=== PATIENT | male | born 1970 | race Two or more races ===

== ENCOUNTER 2017-06-24 17:51 | Emergency (ER) | payer OTHER ==
[~2017-06-24] VITALS: Ht 167.6 cm; Wt 67.7 kg
[~2017-06-24 17:51] MED LIST: BACTDS PO; CLIN-73 PO; GABA600T PO; GLIM2TAB47 PO; HYDR-3498 PO; LID50L4 TOP; LOPE1LIQ33 PO; NOVO3I SC; SIMV5TAB50 PO; TAMS-14 PO
[2017-06-24 17:58] VITALS: Ht 167.6 cm; Wt 67.7 kg
[2017-06-24] MEDS ORDERED: KETOROLAC 15 MG INJ IV STA (20:36)
[2017-06-24] MEDS ORDERED: SOD CHLORIDE 0.9% 1,000 ML IV STA (20:36)
[2017-06-24] MEDS ORDERED: LORAZEPAM 0.5 MG TAB PO ONE (21:00)
[2017-06-24] MEDS ORDERED: SITA1TAB5 PO (21:03)
[2017-06-24] MEDS ORDERED: OMEP40CA6 PO (21:04)
[2017-06-24 21:06] LABS: BASOPHIL # 0.1 10^3/ul (0.0-0.1); BASOPHILS % 1.1 % (0.0-2.0); EOSINOPHILS # 0.1 10^3/ul (0.0-0.5); EOSINOPHILS % 1.8 % (0.0-7.0); HEMATOCRIT 46.7 % (42.0-52.0); HEMOGLOBIN 15.5 g/dl (14.0-18.0); LYMPHOCYTES # 2.1 10^3/ul (0.8-2.9); LYMPHOCYTES % 38.2 % (15.0-51.0); MEAN CORPUSCULAR HEMOGLOBIN 27.9 pg (29.0-33.0); MEAN CORPUSCULAR HGB CONC 33.2 g/dl (32.0-37.0); MEAN PLATELET VOLUME 9.1 fl (7.4-10.4); MONOCYTE # 0.4 10^3/ul (0.3-0.9); MONOCYTES % 7.2 % (0.0-11.0); NEUTROPHIL # 2.9 10^3/ul (1.6-7.5); NEUTROPHILS % 51.5 % (39.0-77.0); PLATELET COUNT 264 10^3/UL (140-415); RED BLOOD COUNT 5.56 10^6/ul (4.70-6.10); RED CELL DISTRIBUTION WIDTH 12.2 % (11.5-14.5); WHITE BLOOD COUNT 5.6 10^3/ul (4.8-10.8)
--- NOTE | 2017-06-24 21:09 | ERD ---
ER Documentation Chief Complaint Chief Complaint Pt CP and SOB X 4 days. HPI 47-year-old man presents with epigastric abdominal pain burning radiating up to the chest and throat 4 days. He states the pain is constant nonexertional. He states he has had similar nominal pain but denies previous chest pain. The chest pain he states his pain which radiates up from the epigastrium. He is a smoker but denies family history of early CAD or [place]. Patient denies weight loss , no fevers or chills, no vomiting or diarrhea, no blood per rectum. ROS All systems reviewed and are negative except as per history of present illness. Medications Home Meds Active Scripts Mag Hydrox/Al Hydrox/Simeth (Maalox Advanced Suspension) 355 Ml Oral.susp, 2 TSP PO TID for PAIN, #24 Prov:DEISY HENDERSON MD 06/24/17 Naproxen* (Naprosyn*) 500 Mg Tablet, 500 MG PO BID Y for PAIN AND/OR INFLAMMATION, #30 TAB Prov:DEISY HENDERSON MD 06/24/17 Glimepiride* (Amaryl*) 2 Mg Tablet, 2 MG PO AC BREAKFAST DINNER for 30 Days, TAB Prov:GINA CONTRERAS 02/26/16 Reported Medications Omeprazole* (Omeprazole*) 40 Mg Capsule.dr, 40 MG PO DAILY Y for NEEDED, #30 CAP 06/24/17 Sitagliptin Phos/Metformin HCl (Janumet 50-1,000 mg Tablet) 1 Each Tablet, 1 EACH PO QAM, TAB 06/24/17 Simvastatin* (Simvastatin*) 5 Mg Tablet, 5 MG PO QHS, #30 TAB 02/22/16 Gabapentin* (Neurontin*) 600 Mg Tablet, 600 MG PO BID 07/29/09 Discontinued Scripts Clindamycin Hcl* (Clindamycin Hcl*) 300 Mg Capsule, 300 MG PO TID for 5 Days, CAP Prov:TATYANA UGLADE PA-C 07/17/16 Loperamide Hcl* (Loperamide Hcl*) 1 Mg/5 Ml Liquid, 2 MG PO TID Y for DIARRHEA, #20 ML MAX 16 mg/day Prov:GINA CONTRERAS 02/27/16 Lidocaine Hcl (Lidocaine Hcl) 40 Mg/Ml Solution, 1 APPLIC TOP DAILY, #8 OZ Prov:GINA CONTRERAS 02/27/16 Sulfamethoxazole-Trimethoprim* (Bactrim* DS) 800-160 Mg Tab, 1 TAB PO BID for 5 Days, TAB Prov:GINA CONTRERAS 02/26/16 Tamsulosin Hcl* (Flomax*) 0.4 Mg Cap.er.24h, 0.4 MG PO HS for 30 Days, CAP Prov:GINA CONTRERAS 02/26/16 Insulin Aspart* (Novolog Insulin Pen*) 100 Unit/Ml Soln, 0 UNIT SC WITH MEALS BEDTIME for 30 Days Prov:JUAN FYvetteGINA 02/26/16 Hydrocodone Bit/Acetaminophen (Anexsia 5-325 Mg Tablet) 1 Tab Tablet, 1 TAB PO Q6H Y for PAIN LEVEL 1-3, #25 TAB Prov:GINA CONTRERAS 02/26/16 Allergies Allergies: Coded Allergies: No Known Allergies (Verified Allergy, Mild, 06/24/17) PMhx/Soc gastritis, diabetes mellitus, prior rectal abscess History of Surgery: Yes (1996,back abscess removed,11/2015 rectal abscess drained) Anesthesia Reaction: No Hx Neurological Disorder: No Hx Respiratory Disorders: No Hx Cardiac Disorders: Yes (hyperlipidimia) Hx Psychiatric Problems: No Hx Miscellaneous Medical Probl: No Hx Alcohol Use: No Hx Substance Use: No Hx Tobacco Use: Yes FmHx Family History: No diabetes Physical Exam Vitals Vital Signs Date Time Temp Pulse Resp B/P Pulse Ox O2 Delivery O2 Flow Rate FiO2 06/24/17 21:00 66 14 133/88 99 Room Air 06/24/17 20:30 98.2 67 15 167/97 99 Room Air 06/24/17 17:58 97.8 85 18 151/104 100 Physical Exam GENERAL: Well-developed, well-nourished, well-hydrated, appears anxious, afebrile HEENT: Moist mucous membranes, pink conjunctiva, no cervical spine tenderness or step-off deformities, no goiter, no jaundice or icterus, extraocular movements intact without pain. No submandibular induration, and no pharyngeal erythema NEURO: Alert and oriented 3, cranial nerves II through XII intact bilaterally, pupils equal round reactive to light, no focal deficits or facial asymmetry, sensation intact distally Strength 5/5 in upper and lower extremities bilaterally CARDIAC: Regular rate and rhythm, no murmurs rubs or gallops LUNGS: Clear bilaterally no wheezing crackles or stridor ABDOMEN: Soft nontender, no guarding, no rigidity, no rebound, no psoas sign no obturator sign. Normoactive bowel sounds SKIN: Warm and dry to touch, no abrasions, contusions, or hematomas, no lacerations, no ecchymosis, no target lesions, and without ulcers EXTREMITIES: No clubbing cyanosis or edema, calves are bilaterally symmetrical, no Homans sign, no popliteal cord sign. Distal pulses equal and bilateral PSYCH: Anxious Result Diagram: 06/24/17204106/24/172041 Results 24 hrs Laboratory Tests Test 06/24/17 20:42 White Blood Count 5.610^3/ul Red Blood Count 5.5610^6/ul Hemoglobin 15.5g/dl Hematocrit 46.7% Mean Corpuscular Volume 84.0fl Mean Corpuscular Hemoglobin 27.9pg Mean Corpuscular Hemoglobin Concent 33.2g/dl Red Cell Distribution Width 12.2% Platelet Count 49023^3/UL Mean Platelet Volume 9.1fl Neutrophils % 51.5% Lymphocytes % 38.2% Monocytes % 7.2% Eosinophils % 1.8% Basophils % 1.1% Nucleated Red Blood Cells % 0.0/100WBC Neutrophils # 2.910^3/ul Lymphocytes # 2.110^3/ul Monocytes # 0.410^3/ul Eosinophils # 0.110^3/ul Basophils # 0.110^3/ul Nucleated Red Blood Cells # 0.010^3/ul Sodium Level 139mmol/L Potassium Level 3.7mmol/L Chloride Level 99mmol/L Carbon Dioxide Level 26mmol/L Anion Gap 18 Blood Urea Nitrogen 12mg/dl Creatinine 0.72mg/dl Glucose Level 217mg/dl Calcium Level 9.8mg/dl Total Bilirubin 0.3mg/dl Direct Bilirubin 0.00mg/dl Indirect Bilirubin 0.3mg/dl Aspartate Amino Transf (AST/SGOT) 27IU/L Alanine Aminotransferase (ALT/SGPT) 45IU/L Alkaline Phosphatase 82IU/L Troponin I < 0.012ng/ml Total Protein 7.7g/dl Albumin 4.8g/dl Globulin 2.90g/dl Albumin/Globulin Ratio 1.65 Lipase 213U/L Current Medications Medications (Trade) Dose Ordered Sig/Juan M Route PRN Reason Start Time Stop Time Status Last Admin Dose Admin Lorazepam 0.5 mg 0.5 mg ONCE ONCE PO 06/24/17 21:00 06/24/17 21:01 DC 06/24/17 21:35 Sodium Chloride (NS) 1,000 ml @ 1,000 mls/hr Q1H STAT IV 06/24/17 20:36 06/24/17 21:35 DC 06/24/17 21:35 Ketorolac Tromethamine (Toradol) 15 mg ONCE STAT IV 06/24/17 20:36 06/24/17 20:37 DC 06/24/17 21:23 Procedures/MDM IV line was established patient was placed on media monitor rhythm strip revealed a sinus rhythm at about 70 bpm with upright P and T waves. Patient was afebrile EKG performed, read by me revealed a normal sinus rhythm at 73 bpm, normal axis , narrow QRS complex, no concerning ST elevations although he has nonspecific T- wave inversions in inferior lateral leads One AP view of the chest performed, read by me reveals no acute infiltrates, normal mediastinum, sharp costophrenic and cardiac borders, no air under the diaphragm. Otherwise unremarkable chest x-ray. I administered 1 L normal saline intravenously, Toradol 15 mg IV, and lorazepam 0.5 mg p.o. 1 with good effect. EKG #2: Performed 4 hours later revealed a normal sinus rhythm at 61 bpm, normal axis of a narrow QRS complex, again with inferior lateral T-wave inversions which appear chronic, no concerning ST elevations noted. CBC and electrolytes were normal, liver function tests were normal, troponin was negative. Differential diagnoses considered, included but not limited to acute coronary syndrome, pulmonary embolism, aortic dissection, abdominal aortic aneurysm, sepsis, stroke, meningitis, encephalitis, pneumonia, appendicitis, cholecystitis , bowel obstruction, pyelonephritis, nephrolithiasis, cystitis, as well as metabolic, hematologic, and electrolyte abnormalities. As well as abscess, cellulitis, fractures, and dislocations. Patient feels much better at this time, and vital signs are normal, symptoms have improved. I did give strict instructions to return to the ED if symptoms continue or worsen, patient will otherwise follow-up with primary care physician. Patient understood instructions and agreed to plan. Disclaimer: Inadvertent spelling and grammatical errors are likely due to EHR/ dictation software use and do not reflect on the overall quality of patient care. Also, please note that the electronic time recorded on this note does not necessarily reflect the actual time of the patient encounter. Departure Diagnosis: Primary Impression: Chest pain Chest pain type: unspecified Qualified Code: R07.9 - Chest pain, unspecified type Additional Impression: Gastritis Gastritis type: unspecified gastritis Chronicity: acute Gastritis bleeding : without bleeding Qualified Code: K29.00 - Acute gastritis without hemorrhage, unspecified gastritis type Condition: DEISY Moyer MD Jun 24, 2017 21:09
[2017-06-24 21:35] LABS: ALANINE AMINOTRANSFERASE 45 IU/L (13-69); ALBUMIN 4.8 g/dl (3.3-4.9); ALBUMIN/GLOBULIN RATIO 1.65; ALKALINE PHOSPHATASE 82 IU/L (42-121); ANION GAP 18 (8-16); ASPARTATE AMINO TRANSFERASE 27 IU/L (15-46); BILIRUBIN,INDIRECT 0.3 mg/dl (0-1.1); BILIRUBIN,TOTAL 0.3 mg/dl (0.2-1.3); BLOOD UREA NITROGEN 12 mg/dl (7-20); CALCIUM 9.8 mg/dl (8.4-10.2); CARBON DIOXIDE 26 mmol/L (21-31); CHLORIDE 99 mmol/L (97-110); CREATININE 0.72 mg/dl (0.61-1.24); GLUCOSE 217 mg/dl (70-220); POTASSIUM 3.7 mmol/L (3.5-5.1); SODIUM 139 mmol/L (135-144); TOTAL PROTEIN 7.7 g/dl (6.1-8.1)
--- NOTE | 2017-06-24 21:46 | RADRPT ---
PROCEDURE: XR Chest. CLINICAL INDICATION: Abdominal pain. TECHNIQUE: AP view of the chest was obtained. COMPARISON: 02/23/2016, 02/18/2009 FINDINGS: The cardiomediastinal silhouette is within normal limits. The lungs are clear. No signs of pleural f luid or pneumothorax are seen. The osseous structures and soft tissues are unremarkable. IMPRESSION: 1. No evidence for active cardiopulmonary disease. RPTAT: HGAS .Kenyon Hinojosa MD, MD Date Time Electronically viewed and signed by .Kenyon Hinojosa MD, MD on 06/24/2017 21:46 .S/
[2017-06-24 21:48] LABS: TROPONIN-I < 0.012 ng/ml (0.00-0.12)
[2017-06-24] MEDS ORDERED: NAPR-260 PO (22:38)
[2017-06-24] MEDS ORDERED: MAG355OR14 PO (22:38)
[2017-06-24 22:59] VITALS: BP 142/99; PULSE 63; RESP 12; TEMP 97.2
== END 2017-06-24 23:02 | disposition home or self-care (01) ==
LOC: E/R 17:51
DX: R07.9 Chest pain, unspecified (principal); K29.00 Acute gastritis without bleeding; E11.9 Type 2 diabetes mellitus without complications; Z79.4 Long term (current) use of insulin; Z79.84 Long term (current) use of oral hypoglycemic drugs; Z87.891 Personal history of nicotine dependence
CPT/HCPCS: 36415; 71010; 80053; 83690; 84484; 85025; 93005; 96374; J1885; J7030; Z7502; Z7610